=== PATIENT | male | born 1940 | race Caucasian/White ===

== ENCOUNTER 2016-10-03 15:50 | Inpatient (IN) | payer MEDICARE ==
[2016-10-03] MEDS ORDERED: Temazepam 15 MG Cap PO PRN (16:55)
[2016-10-03] MEDS ORDERED: Sodium Chloride 0.9% 10 ML Syringe FLUSH PRN (16:55)
[2016-10-03] MEDS ORDERED: cefTRIAXone 1 GM Vial IVPUSH SCH (18:00)
[2016-10-03] MEDS ORDERED: Enoxaparin 40 MG/0.4 ML Syringe SUBCUT SCH (18:00)
[2016-10-03] MEDS ORDERED: Enoxaparin 60 MG/0.6 ML Syringe SUBCUT ONE (20:00)
[2016-10-03] MEDS: Isosorbide Dinitrate 20 MG Tab PO SCH (20:36)
[2016-10-03] MEDS: Warfarin 5 MG Tab PO SCH (20:36)
[2016-10-03] MEDS: Acetaminophen/HYDROcodone 325-5 MG Tab PO PRN (20:42)
[2016-10-03] MEDS: Codeine/Promethazine 10-6.25 MG/5 ML Syrup 5 ML UD Cup PO PRN (20:47)
[2016-10-04] MEDS: Acetaminophen/HYDROcodone 325-5 MG Tab PO PRN ×2 (04:22→19:54)
[2016-10-04] MEDS: Isosorbide Dinitrate 20 MG Tab PO SCH ×3 (07:56→19:46)
[2016-10-04] MEDS: Atenolol 25 MG Tab PO SCH (07:57)
[2016-10-04] MEDS: Enoxaparin 100 MG/1 ML Syringe SUBCUT SCH ×2 (07:58→19:56)
[2016-10-04] MEDS: Furosemide 40 MG Tab PO SCH (07:58)
[2016-10-04] MEDS: Diltiazem 180 MG Cap.CD PO SCH (07:58)
[2016-10-04] MEDS: Docusate Sodium 100 MG Cap PO PRN (09:44)
[2016-10-04] MEDS: Warfarin 5 MG Tab PO SCH (12:12)
--- NOTE | 2016-10-04 15:41 | PCM.PN ---
- General Info Date of Service: 10/04/16 Admission Dx/Problem (Free Text): LLE Cellulitis LLE DVT Functional Status: Reports: pain controlled, tolerating diet, ambulating - Review of Systems General: Reports: Weakness, Fatigue. Denies: Fever HEENT: Denies: ear pain, sinus congestion, rhinitis Pulmonary: Denies: shortness of breath, cough, wheezing Cardiovascular: Reports: Edema. Denies: Chest Pain, Lightheadedness Gastrointestinal: Denies: Abdominal pain, Nausea, Vomiting Genitourinary: Reports: no symptoms Musculoskeletal: Reports: leg pain Skin: Reports: other (redness to leg) Neurological: Reports: Confusion - Patient Data Vitals - most recent: Last Vital Signs Temp 97.8 F 10/04/16 12:00 Pulse 97 10/04/16 12:00 Resp 18 10/04/16 12:00 BP 115/75 10/04/16 14:22 Pulse Ox 88 L 10/04/16 12:00 Weight - most recent: 208 lb Lab Results last 24 hrs: Laboratory Results - last 24 hr 10/03/16 10/03/16 10/03/16 Range/Units 16:30 16:30 16:30 WBC 9.6 (5.0-10.0) 10^3/uL RBC 5.48 (4.50-6.00) 10^6/uL Hgb 16.7 (14.0-18.0) g/dL Hct 51.7 (40.0-54.0) % MCV 94.3 H (82.0-94.0) fL MCH 30.5 (27.0-32.0) pg MCHC 32.3 L (33.0-38.0) g/dL RDW Coeff of Dayanara 14.5 (11.0-15.0) % Plt Count 141 L (150-400) 10^3/uL Neut % (Auto) 74.6 (35-85) % Lymph % (Auto) 12.2 (10-55) % [place] % (Auto) 11.1 (0-16) % Eos % (Auto) 1.5 (0-5) % Baso % (Auto) 0.6 (0-3) % Neut # (Auto) 7.16 H (1.80-7.00) 10^3/uL Lymph # (Auto) 1.17 (1.00-4.80) 10^3/uL [place] # (Auto) 1.07 H (0.00-0.80) 10^3/uL Eos # (Auto) 0.14 (0.00-0.45) 10^3/uL Baso # (Auto) 0.06 10^3/uL PT (9.7-12.3) SEC INR (0.92-1.18) D-Dimer, Quantitative 0.84 H (0.00-0.50) Sodium 143 (136-145) mEq/L Potassium 4.4 (3.5-5.0) mEq/L Chloride 104 (98-106) mEq/L Carbon Dioxide 35 H (21-32) mmol/L BUN 29 H (7-18) mg/dL Creatinine 1.5 H (0.7-1.3) mg/dL Est Cr Clr Drug Dosing 42.43 mL/min Estimated GFR (MDRD) 46 L (>=60) mL/min Glucose 114 H D (75-99) mg/dL Calcium 8.8 (8.4-10.1) mg/dL Troponin I 0.026 (0.00-0.06) ng/mL C-Reactive Protein 1.8 H (0.2-0.8) mg/dL 10/04/16 Range/Units 07:20 WBC (5.0-10.0) 10^3/uL RBC (4.50-6.00) 10^6/uL Hgb (14.0-18.0) g/dL Hct (40.0-54.0) % MCV (82.0-94.0) fL MCH (27.0-32.0) pg MCHC (33.0-38.0) g/dL RDW Coeff of Dayanara (11.0-15.0) % Plt Count (150-400) 10^3/uL Neut % (Auto) (35-85) % Lymph % (Auto) (10-55) % [place] % (Auto) (0-16) % Eos % (Auto) (0-5) % Baso % (Auto) (0-3) % Neut # (Auto) (1.80-7.00) 10^3/uL Lymph # (Auto) (1.00-4.80) 10^3/uL [place] # (Auto) (0.00-0.80) 10^3/uL Eos # (Auto) (0.00-0.45) 10^3/uL Baso # (Auto) 10^3/uL PT 12.7 H (9.7-12.3) SEC INR 1.17 (0.92-1.18) D-Dimer, Quantitative (0.00-0.50) Sodium (136-145) mEq/L Potassium (3.5-5.0) mEq/L Chloride (98-106) mEq/L Carbon Dioxide (21-32) mmol/L BUN (7-18) mg/dL Creatinine (0.7-1.3) mg/dL Est Cr Clr Drug Dosing mL/min Estimated GFR (MDRD) (>=60) mL/min Glucose (75-99) mg/dL Calcium (8.4-10.1) mg/dL Troponin I (0.00-0.06) ng/mL C-Reactive Protein (0.2-0.8) mg/dL Med Orders - Current: Current Medications Hydrocodone Bitart/Acetaminophen ([place] 325-5 Mg) 1 tab PO Q4H PRN PRN Reason: Pain (moderate 4-6) Last Admin: 10/04/16 04:22 Dose: 1 tab Atenolol (Tenormin) 75 mg PO DAILY [facility] Last Admin: 10/04/16 07:57 Dose: 75 mg Ceftriaxone Sodium (Rocephin) 1 gm IVPUSH Q24H [facility] Diltiazem HCl (Cardizem Cd) 180 mg PO DAILY [facility] Last Admin: 10/04/16 07:58 Dose: 180 mg Docusate Sodium (Colace) 100 mg PO BID PRN PRN Reason: Constipation Last Admin: 10/04/16 09:44 Dose: 100 mg Enoxaparin Sodium (Lovenox) 100 mg SUBCUT Q12H [facility] Last Admin: 10/04/16 07:58 Dose: 100 mg Furosemide (Lasix) 40 mg PO DAILY [facility] Last Admin: 10/04/16 07:58 Dose: 40 mg Isosorbide Dinitrate (Isordil) 10 mg PO TID [facility] Last Admin: 10/04/16 14:22 Dose: 10 mg Promethazine HCl/Codeine (Phenergan With Codeine) 5 ml PO Q6H PRN PRN Reason: Cough Last Admin: 10/03/16 20:47 Dose: 5 ml Sodium Chloride (Saline Flush) 10 ml FLUSH ASDIRECTED PRN PRN Reason: Keep Vein Open Temazepam (Restoril) 15 mg PO BEDTIME PRN PRN Reason: Sleep Warfarin Sodium (Coumadin) 5 mg PO DAILY@1200 [facility] Last Admin: 10/04/16 12:12 Dose: 5 mg Discontinued Medications Ceftriaxone Sodium (Rocephin) 1 gm IVPUSH Q24H [facility] Last Admin: 10/03/16 18:43 Dose: 1 gm Enoxaparin Sodium (Lovenox) 40 mg SUBCUT Q24H [facility] Last Admin: 10/03/16 18:44 Dose: 40 mg Enoxaparin Sodium (Lovenox) 60 mg SUBCUT ONETIME ONE Stop: 10/03/16 20:01 Last Admin: 10/03/16 20:37 Dose: 60 mg - Exam General: alert, oriented (person), cooperative HEENT: Mucous membr. moist/pink Neck: supple Lungs: Clear to auscultation, Normal respiratory effort Cardiovascular: Regular Rate, Regular Rhythm Abdomen: bowel sounds present, soft, no tenderness Extremities: edema, other (edema 2-3+ LLE; redness noted; warm. Does have venous stasis changes as well. Admits to mild tenderness) Wound/Incisions: erythema improving (per Dr. Kennedy, erythema and swelling is mildly improved from yesterday) Psy/Mental Status: alert - Problem List & Annotations (1) Cellulitis of left lower extremity SNOMED Code(s): 847272397 Code(s): L03.116 - CELLULITIS OF LEFT LOWER LIMB Status: Acute Priority: High Current Visit: Yes (2) DVT (deep venous thrombosis) SNOMED Code(s): 774472674 Code(s): I82.409 - ACUTE EMBOLISM AND THOMBOS UNSP DEEP VN UNSP LOWER EXTREMITY Status: Acute Priority: High Current Visit: Yes Qualifiers: DVT location: lower extremity Laterality: left Chronicity: acute - Problem List Review Problem List Initiated/Reviewed/Updated: Yes - My Orders Last 24 Hours: My Active Orders 10/05/16 05:11 INR,PT,PROTHROMBIN TIME [COAG] Routine - Assessment Assessment:: LLE DVT LLE Cellulitis - Plan Plan:: Patient stable. Does get confused at times, wanting to go home. Admits that leg has less pain today although does remain swollen and red. Per Dr. Kennedy, edema and redness has improved since admit. Leg ultrasound did indicate possible thrombus in posterior tibial veins. Labs noted on admit show a CRP of 1.8, WBC 9.6, Mildly elevated D-Dimer. Afebrile. Oxygen sat does drop at times. Patient history of noncompliance, not always taking his meds. Son continues to be concerned about ability to be home safely, confusion, inability to safely care for disabled daughter. services engineer has been in the home in the past, caregiver is there through the day at times to check on both patient and his daughter. Will have social service consult regarding senior living placement. Patient started on Coumadin on admit. INR 1.17. Will continue that and IV antibiotics. Follow INR. Probable discharge to senior living short term versus [facility] dependent on patient status and agreement to ongoing care as he is also the primary care provider of his disabled daughter at home.
[2016-10-04] MEDS: Codeine/Promethazine 10-6.25 MG/5 ML Syrup 5 ML UD Cup PO PRN (19:54)
[2016-10-04] MEDS ORDERED: cefTRIAXone 1 GM Vial IVPUSH SCH (20:00)
[2016-10-05] MEDS: Acetaminophen/HYDROcodone 325-5 MG Tab PO PRN ×2 (04:32→19:24)
[2016-10-05] MEDS: Atenolol 25 MG Tab PO SCH (07:49)
[2016-10-05] MEDS: Isosorbide Dinitrate 20 MG Tab PO SCH ×3 (07:49→19:20)
[2016-10-05] MEDS: Furosemide 40 MG Tab PO SCH (07:49)
[2016-10-05] MEDS: Diltiazem 180 MG Cap.CD PO SCH (07:50)
[2016-10-05] MEDS: Enoxaparin 100 MG/1 ML Syringe SUBCUT SCH ×2 (07:50→19:23)
[2016-10-05] MEDS ORDERED: Clindamycin Phosphate in D5W 300 MG in Premix Bag 1 BAG IV SCH ×2 (10:00)
--- NOTE | 2016-10-05 11:00 | PN ---
DATE: 10/05/2016 S: Marquis presented with left lower extremity DVT with edema, stasis ulceration, which was infected. Since admission, he has been afebrile. His vitals have been fine. He has been on Lovenox and started on Coumadin. INR today is still subtherapeutic at 1.29. For the most part, he has done well. He has not had any pain, still having swelling in the legs, but it is improving slightly. O: His exam confirms less edema of the lower leg below the knee. There is less calor and erythema. The drainage is essentially unchanged. ASSESSMENT: 1. LEFT LOWER EXTREMITY DEEP VENOUS THROMBOSIS. 2. STASIS ULCERATION. 3. WOUND INFECTION. P: We will switch him from Rocephin over to IV Cleocin. Continue daily INR monitoring. No other changes at this time. CONNOR/KYLAH /[id number]
[2016-10-05] MEDS: Warfarin 5 MG Tab PO SCH (12:05)
[2016-10-05] MEDS: Clindamycin Phosphate in D5W 300 MG in Premix Bag 1 BAG IV SCH ×2 (17:55)
[2016-10-06] MEDS: Clindamycin Phosphate in D5W 300 MG in Premix Bag 1 BAG IV SCH ×6 (00:31→11:35)
[2016-10-06 08:04] VITALS: BP 127/95
[2016-10-06] MEDS: Enoxaparin 100 MG/1 ML Syringe SUBCUT SCH (08:53)
[2016-10-06] MEDS: Atenolol 25 MG Tab PO SCH (08:54)
[2016-10-06] MEDS: Furosemide 40 MG Tab PO SCH (08:54)
[2016-10-06] MEDS: Diltiazem 180 MG Cap.CD PO SCH (08:54)
[2016-10-06] MEDS: Isosorbide Dinitrate 20 MG Tab PO SCH ×2 (08:54→13:16)
[2016-10-06] MEDS: Acetaminophen/HYDROcodone 325-5 MG Tab PO PRN (09:27)
[2016-10-06] MEDS: Docusate Sodium 100 MG Cap PO PRN (09:27)
[2016-10-06 10:14] LABS: BICARBONATE,ARTERIAL 29.4 mm/L (22.0-26.0); O2 DELIVERY DEVICE NASAL CANNULA; O2 FLOW RATE 3; O2 SATURATION ARTERIAL 94 % (95-98); PCO2 ARTERIAL 50 mm/Hg0 (35-45); PO2 ARTERIAL 74 mm/Hg (80-100)
[2016-10-06] MEDS ORDERED: Albuterol/Ipratropium 3.0-0.5 MG/3 ML Neb Soln NEB ONE (10:25)
[2016-10-06] MEDS: Warfarin 5 MG Tab PO SCH (11:35)
--- NOTE | 2016-10-09 07:40 | DISCH ---
ADMISSION DIAGNOSIS: Left lower extremity edema with ulceration and cellulitis. DISCHARGE DIAGNOSIS: 1. LEFT LOWER EXTREMITY DEEP VENOUS THROMBOSIS. 2. STASIS ULCERATION WITH CELLULITIS, LEFT LOWER EXTREMITY. 3. CHRONIC OBSTRUCTIVE PULMONARY DISEASE. 4. HYPERTENSION. 5. NICOTINE ADDICTION. HISTORY: The patient is a 75-year-old male very noncompliant, rarely seen in the clinic. He is treated for hypertension and has a documented history of heart disease. He is an active smoker and has never had active treatment for his COPD. He presented very unkempt with a care provider for ulcerations on his left lower leg with a lot of edema from the knee down and had some pus coming from a few of his open ulcers in the back of the calf and in and around the medial malleolus. We elected to put him in the hospital for cellulitis and wound treatment and sent him for a duplex to look for DVT, as D-dimer was only mildly elevated. HOSPITAL COURSE: Duplex shows what looks like DVT below the knee. We put him on Lovenox and started him on Coumadin. He has been on IV Cleocin and an oral Lasix tablet. For the most part, he has been quite stable; however, he is unable to care for himself at home. His INR is yet to be therapeutic and he needs ongoing cares. Until that can happen, we are electing to put him in swing bed for further cares. Right now, we will continue IV Cleocin, Lovenox 90 b.i.d., and increase his Lasix slightly. He has been having some drop in his sats and this is likely related to his COPD, which has never been treated. We will see if we can start him on some Symbicort and had DuoNeb. While he is here, we will continue to use oxygen as needed and as an outpatient try to get a formal Pulmonology consult. COMPLICATIONS: Complications during stay were none. CONSULTATIONS: RT, PT. DISPOSITION: Transfer to swing bed. TALON /[id number]
--- NOTE | 2016-10-09 07:51 | DISCH ---
ADDENDUM: Mr. Dawson also suffers from dementia. He had a prior CAF study done in 2016. He scored 63% and I believe, he is classified as [id number]. He is likely be placed in a residential in the near future. CONNOR/KYLAH /[id number]
== END 2016-10-06 12:30 | disposition swing bed (61) | DRG 300 ==
LOC: UNDOADMIN 15:50 → CC.MS 15:50
PROVIDERS: ADMIT Family Medicine; ATTEND Family Medicine
DX: I82.402 Acute embolism and thrombosis of unspecified deep veins of left lower extremity (principal); L03.116 Cellulitis of left lower limb; I83.028 Varicose veins of left lower extremity with ulcer other part of lower leg; J44.9 Chronic obstructive pulmonary disease, unspecified; I10 Essential (primary) hypertension; F17.210 Nicotine dependence, cigarettes, uncomplicated; I25.10 Atherosclerotic heart disease of native coronary artery without angina pectoris; Z91.14 Patient's other noncompliance with medication regimen; F03.90 Unspecified dementia, unspecified severity, without behavioral disturbance, psychotic disturbance, mood disturbance, and anxiety; M54.9 Dorsalgia, unspecified; G89.29 Other chronic pain; E78.00 Pure hypercholesterolemia, unspecified; I27.2 Other secondary pulmonary hypertension; N42.9 Disorder of prostate, unspecified
CPT/HCPCS: 36415; 36600; 71020; 80048; 82803; 84484; 85025; 85379; 85610; 86140; 87070; 87205; 93005; 93971-LT; 94640; 94760; A9270-GY; J0696; J1650

== ENCOUNTER 2016-10-06 13:26 | Inpatient (IN) | payer MEDICARE ==
[2016-10-06] MEDS ORDERED: Sodium Chloride 0.9% 10 ML Syringe FLUSH PRN (13:38)
[2016-10-06] MEDS ORDERED: Ondansetron 4 MG Tab.DIS PO PRN (13:38)
[2016-10-06] MEDS: Albuterol/Ipratropium 3.0-0.5 MG/3 ML Neb Soln NEB SCH ×3 (15:37→20:46)
[2016-10-06] MEDS: Furosemide 40 MG Tab PO SCH (17:09)
[2016-10-06] MEDS: Clindamycin Phosphate in D5W 300 MG in Premix Bag 1 BAG IV SCH ×2 (17:12)
[2016-10-06] MEDS: Acetaminophen/HYDROcodone 325-5 MG Tab PO PRN (17:13)
[2016-10-06] MEDS: Budesonide 0.5 MG/2 ML Neb Susp NEB SCH (20:40)
[2016-10-06] MEDS: Isosorbide Dinitrate 20 MG Tab PO SCH (20:40)
[2016-10-06] MEDS: Enoxaparin 80 MG/0.8 ML Syringe SUBCUT SCH (20:48)
[2016-10-06] MEDS: Temazepam 15 MG Cap PO PRN (21:01)
[2016-10-07] MEDS: Clindamycin Phosphate in D5W 300 MG in Premix Bag 1 BAG IV SCH ×10 (00:42→23:01)
[2016-10-07] MEDS: Acetaminophen/HYDROcodone 325-5 MG Tab PO PRN ×3 (03:53→20:17)
[2016-10-07] MEDS: Metoprolol Succinate 25 MG Tab.ER PO SCH (08:08)
[2016-10-07] MEDS: Diltiazem 180 MG Cap.CD PO SCH (08:08)
[2016-10-07] MEDS: Isosorbide Dinitrate 20 MG Tab PO SCH ×3 (08:09→20:17)
[2016-10-07] MEDS: Furosemide 40 MG Tab PO SCH ×2 (08:09→16:42)
[2016-10-07] MEDS: Enoxaparin 80 MG/0.8 ML Syringe SUBCUT SCH ×2 (08:10→20:18)
[2016-10-07] MEDS: Albuterol/Ipratropium 3.0-0.5 MG/3 ML Neb Soln NEB SCH ×3 (11:48→20:18)
[2016-10-07] MEDS: Budesonide 0.5 MG/2 ML Neb Susp NEB SCH ×2 (11:48→20:18)
[2016-10-07] MEDS: Warfarin 5 MG Tab PO SCH (11:56)
[2016-10-07] MEDS: Temazepam 15 MG Cap PO PRN (20:18)
[2016-10-08] MEDS: Clindamycin Phosphate in D5W 300 MG in Premix Bag 1 BAG IV SCH ×6 (05:52→17:39)
[2016-10-08] MEDS: Diltiazem 180 MG Cap.CD PO SCH (08:12)
[2016-10-08] MEDS: Furosemide 40 MG Tab PO SCH ×2 (08:12→16:25)
[2016-10-08] MEDS: Metoprolol Succinate 25 MG Tab.ER PO SCH (08:12)
[2016-10-08] MEDS: Enoxaparin 80 MG/0.8 ML Syringe SUBCUT SCH ×2 (08:13→20:40)
[2016-10-08] MEDS: Isosorbide Dinitrate 20 MG Tab PO SCH ×3 (08:13→20:39)
[2016-10-08] MEDS: Albuterol/Ipratropium 3.0-0.5 MG/3 ML Neb Soln NEB SCH ×3 (08:19→20:40)
[2016-10-08] MEDS: Budesonide 0.5 MG/2 ML Neb Susp NEB SCH ×2 (08:19→20:40)
[2016-10-08] MEDS: Warfarin 5 MG Tab PO SCH (12:22)
[2016-10-08] MEDS: Acetaminophen/HYDROcodone 325-5 MG Tab PO PRN (14:48)
[2016-10-08] MEDS: Temazepam 15 MG Cap PO PRN (20:40)
[2016-10-09] MEDS: Clindamycin Phosphate in D5W 300 MG in Premix Bag 1 BAG IV SCH ×4 (00:14→05:55)
[2016-10-09] MEDS: Acetaminophen/HYDROcodone 325-5 MG Tab PO PRN (03:05)
[2016-10-09 07:42] VITALS: BP 141/86
[2016-10-09 07:42] LABS: CHLORIDE,CL 104 mEq/L (98-106); SODIUM,NA 141 mEq/L (136-145)
[2016-10-09] MEDS: Enoxaparin 80 MG/0.8 ML Syringe SUBCUT SCH (07:57)
[2016-10-09] MEDS: Isosorbide Dinitrate 20 MG Tab PO SCH (07:58)
[2016-10-09] MEDS: Furosemide 40 MG Tab PO SCH (07:58)
[2016-10-09] MEDS: Diltiazem 180 MG Cap.CD PO SCH (07:59)
[2016-10-09] MEDS: Metoprolol Succinate 25 MG Tab.ER PO SCH (07:59)
[2016-10-09] MEDS: Albuterol/Ipratropium 3.0-0.5 MG/3 ML Neb Soln NEB SCH (09:40)
[2016-10-09] MEDS: Budesonide 0.5 MG/2 ML Neb Susp NEB SCH (09:40)
--- NOTE | 2016-10-10 20:02 | PCM.DCSUM1 ---
Discharge Summary - Hospital Course Free Text/Narrative:: Patient was admitted to swing bed for extended stay for IV antibiotics and to await placement to the [place]. Patient had been admitted by Dr. Kennedy for Cellulitis due to leg being swollen, red and with open lesions. D-Dimer was mildly elevated so an ultrasound was done and was concerning for a DVT below the knee. He was on IV Cleocin, Lovenox and oral Coumadin. He is a noncompliant patient, rarely seen in the clinic, does not treat his COPD. Caregiver for his daughter does assist him with taking meds at times due to forgetfulness. Was on oxygen during stay due to sats dropping below 90% with any activity. Labs relatively stable throughout acute stay. - Discharge Data Discharge Date: 10/09/16 Discharge Disposition: DC/Tfer to [facility] Condition: Fair - Patient Summary/Data Complications: none Consults: Consultations 10/06/16 13:38 Consult to Tree Tapping Laborer [CONS] Routine PT Evaluation and Treatment [CONS] Routine Hospital Course: Patient stable throughout swing bed stay. Leg did show improvement of redness and swelling. Only mild discomfort. Is ambulating without difficulty. INR therapeutic on Coumadin at 2.67. Will continue with Cleocin and Warfarin on discharge to long term. Oxygen as needed. Follow up labs done at the home. Will start Symbicort on admission to the long term. Atenolol stopped and started Metoprolol during stay and will continue at the [facility]. - Patient Instructions Diet: Regular Diet as Tolerated Activity: As Tolerated - Discharge Plan Prescriptions/Med Rec: Budesonide/Formoterol Fumarate [Symbicort 160-4.5 Mcg Inhaler] 2 puff IH BID #1 canister Clindamycin HCl [Cleocin HCl] 300 mg PO QID #40 capsule Metoprolol Succinate [Toprol XL] 50 mg PO DAILY #30 tab.er Warfarin [Coumadin] 5 mg PO DAILY@1200 #30 tablet Home Medications: Home Meds Diltiazem HCl [Dilt-Xr] 180 mg PO DAILY 02/14/16 [History] Isosorbide Dinitrate 10 mg PO TID 02/14/16 [History] Furosemide [Lasix] 40 mg PO DAILY #30 tablet 02/18/16 [Rx] Budesonide/Formoterol Fumarate [Symbicort 160-4.5 Mcg Inhaler] 2 puff IH BID #1 canister 10/09/16 [Rx] Clindamycin HCl [Cleocin HCl] 300 mg PO QID #40 capsule 10/09/16 [Rx] Metoprolol Succinate [Toprol XL] 50 mg PO DAILY #30 tab.er 10/09/16 [Rx] Warfarin [Coumadin] 5 mg PO DAILY@1200 #30 tablet 10/09/16 [Rx] - Discharge Summary/Plan Comment DC Time >30 min.: Yes Discharge Summary/Plan Comment: Transfer to [facility]. Continue Cleocin, start Symbicort. Follow INR as directed per Dr. Kennedy at the long term as started on Coumadin. Time with patient 10 minutes [place] orders and transfer form: 15 minutes Documentation 15 minutes - General Info Date of Service: 10/09/16 Admission Dx/Problem (Free Text: Cellulitis DVT Functional Status: Reports: pain controlled, tolerating diet, ambulating - Review of Systems General: Reports: Weakness, Fatigue. Denies: Fever HEENT: Reports: no symptoms Pulmonary: Reports: shortness of breath, cough, wheezing Cardiovascular: Reports: Edema. Denies: Chest Pain Gastrointestinal: Denies: Abdominal pain, Nausea, Vomiting Genitourinary: Reports: no symptoms Musculoskeletal: Reports: leg pain Skin: Reports: other (redness to leg) Neurological: Reports: Confusion - Patient Data Vitals - Most Recent: Last Vital Signs Temp 97.0 F 10/09/16 07:40 Pulse 98 10/09/16 07:59 Resp 16 10/09/16 07:40 BP 141/86 H 10/09/16 07:59 Pulse Ox 94 L 10/09/16 07:40 Weight - Most Recent: 219 lb 4.8 oz Med Orders - Current: Current Medications Discontinued Medications Hydrocodone Bitart/Acetaminophen ([place] 325-5 Mg) 1 tab PO Q4H PRN PRN Reason: Pain (moderate 4-6) Last Admin: 10/09/16 03:05 Dose: 1 tab Albuterol/Ipratropium (Duoneb 3.0-0.5 Mg/3 Ml) 3 ml NEB TIDRT [facility] Last Admin: 10/09/16 09:40 Dose: 3 ml Budesonide (Pulmicort) 0.5 mg NEB BIDRT [facility] Last Admin: 10/09/16 09:40 Dose: 0.5 mg Diltiazem HCl (Cardizem Cd) 180 mg PO DAILY [facility] Last Admin: 10/09/16 07:59 Dose: 180 mg Enoxaparin Sodium (Lovenox) 80 mg SUBCUT Q12H [facility] Last Admin: 10/09/16 07:57 Dose: 80 mg Furosemide (Lasix) 40 mg PO BIDDIURETIC [facility] Last Admin: 10/09/16 07:58 Dose: 40 mg Clindamycin Phosphate 300 mg/ (Premix) 50 mls @ 100 mls/hr IV Q6H [facility] Last Admin: 10/09/16 05:55 Dose: 100 mls/hr Isosorbide Dinitrate (Isordil) 10 mg PO TID [facility] Last Admin: 10/09/16 07:58 Dose: 10 mg Metoprolol Succinate (Toprol Xl) 50 mg PO DAILY [facility] Last Admin: 10/09/16 07:59 Dose: 50 mg Ondansetron HCl (Zofran Odt) 8 mg PO Q6H PRN PRN Reason: nausea, able to take PO Sodium Chloride (Saline Flush) 10 ml FLUSH ASDIRECTED PRN PRN Reason: Keep Vein Open Temazepam (Restoril) 15 mg PO BEDTIME PRN PRN Reason: Sleep Last Admin: 10/08/16 20:40 Dose: 15 mg Warfarin Sodium (Coumadin) 5 mg PO DAILY@1200 [facility] Last Admin: 10/08/16 12:22 Dose: 5 mg - Exam Quality Assessment: Reports: supplemental oxygen General: Reports: alert, oriented (person and place) HEENT: Reports: Mucous membr. moist/pink Neck: Reports: supple Lungs: Reports: Decreased breath sounds, Wheezing Cardiovascular: Reports: Regular Rate, Regular Rhythm Abdomen: Reports: bowel sounds present, soft, no tenderness Extremities: Reports: edema Wound/Incisions: Reports: erythema improving, other (LLE is less erythematous than on admit, swelling improved. lesions dry at this time.) Psy/Mental Status: Reports: alert *Q Meaningful Use (DIS) - VTE *Q VTE Criteria *Q: - Stroke *Q Stroke Criteria *Q: - AMI *Q AMI Criteria *Q:
== END 2016-10-09 10:20 | DRG 603 ==
LOC: UNDOADMIN 13:37 → CC.MS 13:37
PROVIDERS: ADMIT Family Medicine; ATTEND Family Medicine
DX: L03.116 Cellulitis of left lower limb (principal); Z91.14 Patient's other noncompliance with medication regimen; J44.9 Chronic obstructive pulmonary disease, unspecified; M54.9 Dorsalgia, unspecified; G89.29 Other chronic pain; I27.2 Other secondary pulmonary hypertension; N42.9 Disorder of prostate, unspecified; I10 Essential (primary) hypertension; E66.9 Obesity, unspecified; Z68.31 Body mass index [BMI] 31.0-31.9, adult
CPT/HCPCS: 36415; 80048; 85610; 94640; 97161-GP; A9270-GY; J1650

== ENCOUNTER 2017-05-28 07:03 | Inpatient (IN) | payer MEDICARE ==
[2017-05-28] MEDS ORDERED: Albuterol/Ipratropium 3.0-0.5 MG/3 ML Neb Soln ONE (07:07)
[2017-05-28] MEDS ORDERED: Albuterol/Ipratropium 3.0-0.5 MG/3 ML Neb Soln NEB PRN (07:36)
[2017-05-28] MEDS ORDERED: Albuterol/Ipratropium 3.0-0.5 MG/3 ML Neb Soln NEB ONE (07:50)
--- NOTE | 2017-05-28 07:51 | EDM.PDOC ---
ED HPI GENERAL MEDICAL PROBLEM - General Chief Complaint: Cardiovascular Problem Stated Complaint: SOB Time Seen by Provider: 05/28/17 07:27 Source of Information: Reports: Patient, Care Home Records History Limitations: Reports: Respiratory Distress - History of Present Illness INITIAL COMMENTS - FREE TEXT/NARRATIVE: Pt was brought in by [facility] from [facility] with respiratory distress. Report states that at about 0600 he started having SOB and coughing. O2 sats at that time were in the 70's and oxygen was applied. When arriving here he had a very moist cough that was congested. Duoneb was given immediately. Sats did go up to low 90's. Abdomen is distended but he feels that is his normal. NH report states that he was not like this last night. He states that he has been coughing for 2 weeks. He denies having a fever with it. Onset: Today Duration: Getting Worse Location: Reports: Chest Worsens with: Reports: Movement Associated Symptoms: Reports: Cough, cough w sputum, Shortness of Breath. Denies: Chest Pain, Fever/Chills Treatments EXECUTIVE ASST: Reports: Oxygen - Related Data Allergies Allergy/AdvReac Type Severity Reaction Status Date / Time No Known Allergies Allergy Verified 05/28/17 07:18 Home Meds: Home Meds Diltiazem HCl [Dilt-Xr] 180 mg PO DAILY 02/14/16 [History] Isosorbide Dinitrate 10 mg PO TID 02/14/16 [History] Budesonide/Formoterol Fumarate [Symbicort 160-4.5 Mcg Inhaler] 2 puff IH BID #1 canister 10/09/16 [Rx] Metoprolol Succinate [Toprol XL] 50 mg PO DAILY #30 tab.er 10/09/16 [Rx] Cetirizine HCl [Zyrtec] 10 mg PO DAILY 05/28/17 [History] Docusate Sodium [Colace] 1 cap PO DAILY 05/28/17 [History] Furosemide [Lasix] 80 mg PO BID 05/28/17 [History] Hydrocodone/Acetaminophen [[place] 5-325] 1 tab PO BID 05/28/17 [History] Melatonin 5 mg PO BEDTIME 05/28/17 [History] Potassium Chloride 20 meq PO BID 05/28/17 [History] Warfarin [Coumadin] 5 mg PO ASDIRECTED 05/28/17 [History] Past Medical History HEENT History: Reports: Allergic Rhinitis Cardiovascular History: Reports: High Cholesterol, Hypertension Genitourinary History: Reports: Prostate Disorder Musculoskeletal History: Reports: Back Pain, Chronic - Past Surgical History Musculoskeletal Surgical History: Reports: Other (See Below) Social & Family History - Family History Family Medical History: Noncontributory - Tobacco Use Smoking Status *Q: Former Smoker Years of Tobacco use: 40 Used Tobacco, but Quit: Yes Month Tobacco Last Used: 1987 - Caffeine Use Caffeine Use: Reports: None - Recreational Drug Use Recreational Drug Use: No ED ROS GENERAL - Review of Systems Review Of Systems: See Below Constitutional: Reports: Fever, Weakness. Denies: Chills HEENT: Reports: No Symptoms Respiratory: Reports: Shortness of Breath, Wheezing, Cough, Sputum Cardiovascular: Reports: Edema. Denies: Chest Pain GI/Abdominal: Denies: Abdominal Pain, Constipation, Diarrhea, Vomiting : Reports: No Symptoms Skin: Reports: No Symptoms Neurological: Reports: Confusion ED EXAM, GENERAL - Physical Exam Exam: See Below Exam Limited By: Respiratory Distress General Appearance: Alert, Anxious, Moderate Distress Ears: Normal External Exam, Normal Canal, Normal TMs Nose: Normal Inspection Throat/Mouth: Normal Inspection, Normal Oropharynx, No Airway Compromise Head: Atraumatic, Normocephalic Neck: Normal Inspection, Supple, Non-Tender Respiratory/Chest: Respiratory Distress, Rales, Rhonchi, Wheezing Cardiovascular: Regular Rate, Rhythm GI/Abdominal: Soft, Abnormal Bowel Sounds (bowel sounds are decreased bilaterally.) Back Exam: Normal Inspection, Full Range of Motion Extremities: Normal Inspection, Non-Tender, Normal Capillary Refill, Pedal Edema (2-3+) Neurological: Alert, Oriented Psychiatric: Anxious Skin Exam: Warm, Dry, Intact Course - Vital Signs Last Recorded V/S: Last Vital Signs Temp 100.7 F H 05/28/17 07:31 Pulse 95 05/28/17 07:31 Resp 20 05/28/17 07:31 BP 162/95 H 05/28/17 07:31 Pulse Ox 94 L 05/28/17 07:31 - Orders/Labs/Meds Orders: Active Orders 24 hr Category Date Time Status Patient Status Manage Transfer [TRANSFER] Routine ADT 05/28/17 08:19 Ordered EKG Documentation Completion [RC] STAT Care 05/28/17 07:22 Active RT Aerosol Therapy [RC] ASDIRECTED Care 05/28/17 07:36 Active RT Aerosol Therapy [RC] ASDIRECTED Care 05/28/17 07:51 Active Chest 1V Frontal [CR] Stat Exams 05/28/17 07:22 Taken Albuterol/Ipratropium [DuoNeb 3.0-0.5 MG/3 ML] Med 05/28/17 07:36 Active 3 ml NEB Q4H PRN Resuscitation Status Routine Resus Stat 05/28/17 08:23 Ordered Medication Orders Albuterol/Ipratropium (Duoneb 3.0-0.5 Mg/3 Ml) 3 ml NEB Q4H PRN PRN Reason: Dyspnea Last Admin: 05/28/17 07:10 Dose: 3 ml Labs: Laboratory Tests 05/28/17 05/28/17 05/28/17 Range/Units 07:30 07:30 07:30 WBC 14.5 H (5.0-10.0) 10^3/uL RBC 4.97 (4.50-6.00) 10^6/uL Hgb 15.4 (14.0-18.0) g/dL Hct 47.5 (40.0-54.0) % MCV 95.6 H (82.0-94.0) fL MCH 31.0 (27.0-32.0) pg MCHC 32.4 L (33.0-38.0) g/dL RDW Coeff of Dayanara 15.0 (11.0-15.0) % Plt Count 187 (150-400) 10^3/uL Neut % (Auto) 89.3 H (35-85) % Lymph % (Auto) 3.4 L (10-55) % [place] % (Auto) 7.0 (0-16) % Eos % (Auto) 0.1 (0-5) % Baso % (Auto) 0.2 (0-3) % Neut # (Auto) 12.97 H (1.80-7.00) 10^3/uL Lymph # (Auto) 0.49 L (1.00-4.80) 10^3/uL [place] # (Auto) 1.02 H (0.00-0.80) 10^3/uL Eos # (Auto) 0.02 (0.00-0.45) 10^3/uL Baso # (Auto) 0.03 10^3/uL PT 42.2 H (9.7-12.3) SEC INR 3.75 H (0.92-1.18) Sodium (136-145) mEq/L Potassium (3.5-5.0) mEq/L Chloride (98-106) mEq/L Carbon Dioxide (21-32) mmol/L BUN (7-18) mg/dL Creatinine (0.7-1.3) mg/dL Est Cr Clr Drug Dosing mL/min Estimated GFR (MDRD) (>=60) mL/min Glucose (75-99) mg/dL Calcium (8.4-10.1) mg/dL Total Bilirubin (0.0-1.0) mg/dL AST (15-37) U/L ALT (12-78) U/L Alkaline Phosphatase (46-116) U/L Lactate Dehydrogenase 226 H (100-190) U/L Creatine Kinase 49 (35-232) U/L Troponin I 0.031 (0.00-0.06) ng/mL C-Reactive Protein (0.2-0.8) mg/dL NT-Pro-B Natriuret Pep 3122 H (0-1000) pg/mL Total Protein (6.4-8.2) g/dL Albumin (3.4-5.0) g/dL 05/28/17 Range/Units 07:30 WBC (5.0-10.0) 10^3/uL RBC (4.50-6.00) 10^6/uL Hgb (14.0-18.0) g/dL Hct (40.0-54.0) % MCV (82.0-94.0) fL MCH (27.0-32.0) pg MCHC (33.0-38.0) g/dL RDW Coeff of Dayanara (11.0-15.0) % Plt Count (150-400) 10^3/uL Neut % (Auto) (35-85) % Lymph % (Auto) (10-55) % [place] % (Auto) (0-16) % Eos % (Auto) (0-5) % Baso % (Auto) (0-3) % Neut # (Auto) (1.80-7.00) 10^3/uL Lymph # (Auto) (1.00-4.80) 10^3/uL [place] # (Auto) (0.00-0.80) 10^3/uL Eos # (Auto) (0.00-0.45) 10^3/uL Baso # (Auto) 10^3/uL PT (9.7-12.3) SEC INR (0.92-1.18) Sodium 143 (136-145) mEq/L Potassium 3.7 (3.5-5.0) mEq/L Chloride 102 (98-106) mEq/L Carbon Dioxide 38 H (21-32) mmol/L BUN 19 H (7-18) mg/dL Creatinine 1.1 (0.7-1.3) mg/dL Est Cr Clr Drug Dosing 57.00 mL/min Estimated GFR (MDRD) > 60 (>=60) mL/min Glucose 148 H D (75-99) mg/dL Calcium 9.2 (8.4-10.1) mg/dL Total Bilirubin 1.9 H (0.0-1.0) mg/dL AST 34 (15-37) U/L ALT 41 (12-78) U/L Alkaline Phosphatase 124 H (46-116) U/L Lactate Dehydrogenase (100-190) U/L Creatine Kinase (35-232) U/L Troponin I (0.00-0.06) ng/mL C-Reactive Protein 3.2 H (0.2-0.8) mg/dL NT-Pro-B Natriuret Pep (0-1000) pg/mL Total Protein 7.2 (6.4-8.2) g/dL Albumin 3.4 (3.4-5.0) g/dL Meds: Medications Generic Name Dose Route Start Last Admin Trade Name Freq PRN Reason Stop Dose Admin Albuterol/Ipratropium 3 ml 05/28/17 07:36 05/28/17 07:10 Duoneb 3.0-0.5 Mg/3 Ml NEB 3 ml Q4H PRN Administration Dyspnea Discontinued Medications Generic Name Dose Route Start Last Admin Trade Name Freq PRN Reason Stop Dose Admin Albuterol/Ipratropium Confirm 05/28/17 07:07 Duoneb 3.0-0.5 Mg/3 Ml Administered 05/28/17 07:08 Dose 3 ml .ROUTE .STK-MED ONE Albuterol/Ipratropium 3 ml 05/28/17 07:50 Duoneb 3.0-0.5 Mg/3 Ml NEB 05/28/17 07:51 ONETIME ONE Departure - Departure Time of Disposition: 08:44 Disposition: Admitted As Inpatient 68 Condition: Serious Clinical Impression: Pneumonia, COPD exacerbation, Essential (primary) hypertension, Dementia, CHF ( congestive heart failure) Forms: ED Department Discharge - Problem List & Annotations (1) Pneumonia SNOMED Code(s): 845269887 Code(s): J18.9 - PNEUMONIA, UNSPECIFIED ORGANISM Status: Acute Priority: High Current Visit: No Qualifiers: Pneumonia type: due to unspecified organism Laterality: bilateral Lung location: lower lobe of lung Qualified Code(s): J18.9 - Pneumonia, unspecified organism (2) COPD exacerbation SNOMED Code(s): 538052642133567 Code(s): J44.1 - CHRONIC OBSTRUCTIVE PULMONARY DISEASE W (ACUTE) EXACERBATION Status: Acute Priority: Medium Current Visit: Yes (3) CHF (congestive heart failure) SNOMED Code(s): 12904790 Code(s): I50.9 - HEART FAILURE, UNSPECIFIED Status: Acute Priority: Medium Current Visit: Yes Qualifiers: Congestive heart failure type: combined (4) Dementia SNOMED Code(s): 13066392 Code(s): F03.90 - UNSPECIFIED DEMENTIA WITHOUT BEHAVIORAL DISTURBANCE Status: Acute Priority: Low Current Visit: Yes Qualifiers: Dementia type: Alzheimer's disease Alzheimer's disease onset: early-onset Dementia behavioral disturbance: without behavioral disturbance Qualified Code(s): G30.0 - Alzheimer's disease with early onset; F02.80 - Dementia in other diseases classified elsewhere without behavioral disturbance; F02.80 - Dementia in other diseases classified elsewhere without behavioral disturbance; F02.80 - Dementia in other diseases classified elsewhere without behavioral disturbance (5) Essential (primary) hypertension SNOMED Code(s): 56565935 Code(s): I10 - ESSENTIAL (PRIMARY) HYPERTENSION Status: Acute Priority: Low Current Visit: Yes - Problem List Review Problem List Initiated/Reviewed/Updated: Yes - My Orders Last 24 Hours: My Active Orders 05/28/17 07:22 EKG Documentation Completion [RC] STAT Chest 1V Frontal [CR] Stat 05/28/17 07:36 RT Aerosol Therapy [RC] ASDIRECTED Albuterol/Ipratropium [DuoNeb 3.0-0.5 MG/3 ML] 3 ml NEB Q4H PRN 05/28/17 07:51 RT Aerosol Therapy [RC] ASDIRECTED 05/28/17 08:19 Patient Status Manage Transfer [TRANSFER] Routine 05/28/17 08:23 Resuscitation Status Routine - Assessment/Plan Admission H&P: Please use this note as an admission H&P Last 24 Hours: My Active Orders 05/28/17 07:22 EKG Documentation Completion [RC] STAT Chest 1V Frontal [CR] Stat 05/28/17 07:36 RT Aerosol Therapy [RC] ASDIRECTED Albuterol/Ipratropium [DuoNeb 3.0-0.5 MG/3 ML] 3 ml NEB Q4H PRN 05/28/17 07:51 RT Aerosol Therapy [RC] ASDIRECTED 05/28/17 08:19 Patient Status Manage Transfer [TRANSFER] Routine 05/28/17 08:23 Resuscitation Status Routine Plan: Will admit with palliative care as pt is in serious condition.
[2017-05-28 07:56] LABS: CHLORIDE,CL 102 mEq/L (98-106); SODIUM,NA 143 mEq/L (136-145)
[2017-05-28] MEDS ORDERED: methylPREDNISolone Sodium Succinate 125 MG/2 ML SDV IVPUSH SCH (09:00)
[2017-05-28] MEDS ORDERED: cefTRIAXone 1 GM Vial IVPUSH SCH (09:00)
[2017-05-28] MEDS ORDERED: Azithromycin 500 MG in Sodium Chloride 0.9% 250 ML IV SCH (09:00)
[2017-05-28] MEDS ORDERED: Acetaminophen 325 MG Tab PO PRN (09:18)
[2017-05-28] MEDS ORDERED: Sodium Chloride 0.9% 10 ML Syringe FLUSH PRN (09:18)
[2017-05-28] MEDS: Metoprolol Succinate 25 MG Tab.ER PO SCH (09:57)
[2017-05-28] MEDS: Diltiazem 180 MG Cap.CD PO SCH (09:57)
[2017-05-28] MEDS: Docusate Sodium 100 MG Cap PO SCH (09:57)
[2017-05-28] MEDS: Acetaminophen/HYDROcodone 325-5 MG Tab PO SCH ×2 (09:58→19:45)
[2017-05-28] MEDS: Loratadine 10 MG Tab PO SCH (09:58)
[2017-05-28] MEDS: Formoterol/Mometasone 200-5 MCG 8.8 GM Inhaler IH SCH ×2 (09:58→19:49)
[2017-05-28] MEDS: Furosemide 40 MG Tab PO SCH ×2 (09:58→16:54)
[2017-05-28] MEDS: Albuterol/Ipratropium 3.0-0.5 MG/3 ML Neb Soln NEB SCH ×3 (11:37→19:45)
[2017-05-28] MEDS: Potassium Chloride 10 MEQ Tab.ER PO SCH ×2 (11:37→16:54)
[2017-05-28] MEDS: Isosorbide Dinitrate 20 MG Tab PO SCH ×2 (14:26→19:47)
[2017-05-28] MEDS ORDERED: Non-Formulary Medication 1 Each (Melatonin [Melatonin] 5 MG) PO SCH (20:00)
[2017-05-28] MEDS ORDERED: Zolpidem 5 MG Tab PO ONE (22:54)
[2017-05-29 07:19] LABS: CHLORIDE,CL 102 mEq/L (98-106); SODIUM,NA 142 mEq/L (136-145)
[2017-05-29] MEDS: Albuterol/Ipratropium 3.0-0.5 MG/3 ML Neb Soln NEB SCH ×4 (07:56→20:12)
[2017-05-29] MEDS: Isosorbide Dinitrate 20 MG Tab PO SCH ×3 (07:58→20:13)
[2017-05-29] MEDS: Furosemide 40 MG Tab PO SCH (07:58)
[2017-05-29] MEDS: Acetaminophen/HYDROcodone 325-5 MG Tab PO SCH ×2 (07:58→20:12)
[2017-05-29] MEDS: Metoprolol Succinate 25 MG Tab.ER PO SCH (07:59)
[2017-05-29] MEDS: Diltiazem 180 MG Cap.CD PO SCH (07:59)
[2017-05-29] MEDS: Docusate Sodium 100 MG Cap PO SCH (08:00)
[2017-05-29] MEDS: Loratadine 10 MG Tab PO SCH (08:00)
[2017-05-29] MEDS: Potassium Chloride 10 MEQ Tab.ER PO SCH ×2 (08:01→17:44)
[2017-05-29] MEDS: Formoterol/Mometasone 200-5 MCG 8.8 GM Inhaler IH SCH ×2 (08:02→20:12)
[2017-05-29] MEDS: cefTRIAXone 1 GM Vial IVPUSH SCH (08:31)
[2017-05-29] MEDS: methylPREDNISolone Sodium Succinate 125 MG/2 ML SDV IVPUSH SCH (08:32)
[2017-05-29] MEDS: Azithromycin 500 MG in Sodium Chloride 0.9% 250 ML IV SCH (08:32)
--- NOTE | 2017-05-29 09:59 | PCM.PN ---
- General Info Date of Service: 05/29/17 Admission Dx/Problem (Free Text): Pneumonia COPD Exacerbation CHF HTN Dementia Subjective Update: Patient reports he is feeling better this morning and is able to breath easier. His vital signs are stable. His O2 saturations are mid 90's on 4 L O2 via nasal canula. He denies any shortness of breath at rest. He does report he has been up moving in the room and does have some shortness of breath with that. He has been afebrile throughout the night. He does complain of nonproductive cough. Has been unable to give sputum sample. He also has 2+ pitting edema to BLE. He reports he always has this swelling. Is currently on 80 mg lasix PO BID. He does report he has felt fatigued and weak the past couple days. He denies any other issues at time of rounds. Functional Status: Reports: Pain Controlled, Tolerating Diet, Ambulating, Urinating. Denies: New Symptoms - Review of Systems General: Reports: Weakness, Fatigue. Denies: Fever HEENT: Denies: Dysphasia, Ear Pain, Sinus Congestion, Sore Throat, Rhinitis Pulmonary: Reports: Shortness of Breath, Cough, Wheezing. Denies: Sputum, Hemoptysis Cardiovascular: Reports: Dyspnea on Exertion, Edema. Denies: Chest Pain, Palpitations, Lightheadedness Gastrointestinal: Reports: No Symptoms. Denies: Abdominal Pain, Decreased Appetite, Diarrhea, Nausea, Vomiting Genitourinary: Reports: Other (weak stream). Denies: Dysuria, Frequency Musculoskeletal: Reports: No Symptoms Skin: Reports: No Symptoms. Denies: Cyanosis, Diaphoresis Neurological: Reports: No Symptoms Psychiatric: Reports: No Symptoms - Patient Data Vitals - Most Recent: Last Vital Signs Temp 98.1 F 05/29/17 07:50 Pulse 94 05/29/17 07:59 Resp 20 05/29/17 07:50 BP 115/78 05/29/17 07:59 Pulse Ox 92 L 05/29/17 07:50 Weight - Most Recent: 224 lb 12.8 oz I&O - Last 24 Hours: Intake & Output 05/28/17 05/29/17 05/29/17 22:59 06:59 14:59 Intake Total 1445 1400 Output Total 700 1300 Balance 745 100 Lab Results Last 24 Hours: Laboratory Results - last 24 hr 05/28/17 05/29/17 05/29/17 Range/Units 14:22 06:45 06:45 WBC 13.1 H (5.0-10.0) 10^3/uL RBC 4.67 (4.50-6.00) 10^6/uL Hgb 14.0 (14.0-18.0) g/dL Hct 44.9 (40.0-54.0) % MCV 96.1 H (82.0-94.0) fL MCH 30.0 (27.0-32.0) pg MCHC 31.2 L (33.0-38.0) g/dL RDW Coeff of Dayanara 14.6 (11.0-15.0) % Plt Count 127 L (150-400) 10^3/uL Neut % (Auto) 88.0 H (35-85) % Lymph % (Auto) 4.4 L (10-55) % [place] % (Auto) 7.5 (0-16) % Eos % (Auto) 0 (0-5) % Baso % (Auto) 0.1 (0-3) % Neut # (Auto) 11.52 H (1.80-7.00) 10^3/uL Lymph # (Auto) 0.57 L (1.00-4.80) 10^3/uL [place] # (Auto) 0.98 H (0.00-0.80) 10^3/uL Eos # (Auto) 0.00 (0.00-0.45) 10^3/uL Baso # (Auto) 0.01 10^3/uL PT 48.9 H (9.7-12.3) SEC INR 4.33 H* (0.92-1.18) Sodium (136-145) mEq/L Potassium (3.5-5.0) mEq/L Chloride (98-106) mEq/L Carbon Dioxide (21-32) mmol/L BUN (7-18) mg/dL Creatinine (0.7-1.3) mg/dL Est Cr Clr Drug Dosing mL/min Estimated GFR (MDRD) (>=60) mL/min Glucose (75-99) mg/dL Calcium (8.4-10.1) mg/dL C-Reactive Protein (0.2-0.8) mg/dL Urine Color Dark yellow (YELLOW) Urine Appearance Clear (CLEAR) Urine pH 5.0 (4.5-8.0) Ur Specific [place] 1.020 (1.003-1.020) Urine Protein Negative (NEGATIVE) mg/dL Urine Glucose (UA) Negative (NEGATIVE) mg/dL Urine Ketones Negative (NEGATIVE) mg/dL Urine Occult Blood Trace-intact H (NEGATIVE) Urine Nitrite Negative (NEGATIVE) Urine Bilirubin Negative (NEGATIVE) Urine Urobilinogen 0.2 (0.2-1.0) EU/dL Ur Leukocyte Esterase Negative (NEGATIVE) Urine RBC 0-5 (0-5) /HPF Urine WBC Not seen (0-5) /HPF Ur Squamous Epith Cells Few H (NOT SEEN) /HPF 05/29/17 Range/Units 06:45 WBC (5.0-10.0) 10^3/uL RBC (4.50-6.00) 10^6/uL Hgb (14.0-18.0) g/dL Hct (40.0-54.0) % MCV (82.0-94.0) fL MCH (27.0-32.0) pg MCHC (33.0-38.0) g/dL RDW Coeff of Dayanara (11.0-15.0) % Plt Count (150-400) 10^3/uL Neut % (Auto) (35-85) % Lymph % (Auto) (10-55) % [place] % (Auto) (0-16) % Eos % (Auto) (0-5) % Baso % (Auto) (0-3) % Neut # (Auto) (1.80-7.00) 10^3/uL Lymph # (Auto) (1.00-4.80) 10^3/uL [place] # (Auto) (0.00-0.80) 10^3/uL Eos # (Auto) (0.00-0.45) 10^3/uL Baso # (Auto) 10^3/uL PT (9.7-12.3) SEC INR (0.92-1.18) Sodium 142 (136-145) mEq/L Potassium 3.7 (3.5-5.0) mEq/L Chloride 102 (98-106) mEq/L Carbon Dioxide 37 H (21-32) mmol/L BUN 20 H (7-18) mg/dL Creatinine 1.1 (0.7-1.3) mg/dL Est Cr Clr Drug Dosing 57.00 mL/min Estimated GFR (MDRD) > 60 (>=60) mL/min Glucose 149 H (75-99) mg/dL Calcium 9.0 (8.4-10.1) mg/dL C-Reactive Protein 16.8 H (0.2-0.8) mg/dL Urine Color (YELLOW) Urine Appearance (CLEAR) Urine pH (4.5-8.0) Ur Specific [place] (1.003-1.020) Urine Protein (NEGATIVE) mg/dL Urine Glucose (UA) (NEGATIVE) mg/dL Urine Ketones (NEGATIVE) mg/dL Urine Occult Blood (NEGATIVE) Urine Nitrite (NEGATIVE) Urine Bilirubin (NEGATIVE) Urine Urobilinogen (0.2-1.0) EU/dL Ur Leukocyte Esterase (NEGATIVE) Urine RBC (0-5) /HPF Urine WBC (0-5) /HPF Ur Squamous Epith Cells (NOT SEEN) /HPF Antione Results Last 24 Hours: Microbiology 05/28/17 14:55 Influenza Type A Antigen Screen - Final Nasopharyngeal Swab - Nare, Unspecified NEGATIVE INFLUENZA A VIRUS AG Influenza Type B Antigen Screen - Final NEGATIVE INFLUENZA B VIRUS AG Med Orders - Current: Current Medications Acetaminophen (Tylenol) 650 mg PO Q4H PRN PRN Reason: Pain (Mild 1-3)/fever Last Admin: 05/28/17 11:37 Dose: 650 mg Hydrocodone Bitart/Acetaminophen ([place] 325-5 Mg) 1 tab PO BID [facility] Last Admin: 05/29/17 07:58 Dose: 1 tab Albuterol/Ipratropium (Duoneb 3.0-0.5 Mg/3 Ml) 3 ml NEB Q4H PRN PRN Reason: Dyspnea Last Admin: 05/28/17 07:10 Dose: 3 ml Albuterol/Ipratropium (Duoneb 3.0-0.5 Mg/3 Ml) 3 ml NEB QIDRT [facility] Last Admin: 05/29/17 07:56 Dose: 3 ml Ceftriaxone Sodium (Rocephin) 1 gm IVPUSH Q24H [facility] Last Admin: 05/29/17 08:31 Dose: 1 gm Diltiazem HCl (Cardizem Cd) 180 mg PO DAILY [facility] Last Admin: 05/29/17 07:59 Dose: 180 mg Docusate Sodium (Colace) 100 mg PO DAILY [facility] Last Admin: 05/29/17 08:00 Dose: 100 mg Furosemide (Lasix) 80 mg PO BIDDIURETIC [facility] Azithromycin 500 mg/ Sodium (Chloride) 250 mls @ 250 mls/hr IV Q24H [facility] Last Admin: 05/29/17 08:32 Dose: 250 mls/hr Isosorbide Dinitrate (Isordil) 10 mg PO TID [facility] Last Admin: 05/29/17 07:58 Dose: 10 mg Loratadine (Claritin) 10 mg PO DAILY [facility] Last Admin: 05/29/17 08:00 Dose: 10 mg Methylprednisolone Sodium Succinate (Solu-Medrol) 62.5 mg IVPUSH Q24H [facility] Last Admin: 05/29/17 08:32 Dose: 62.5 mg Metoprolol Succinate (Toprol Xl) 50 mg PO DAILY [facility] Last Admin: 05/29/17 07:59 Dose: 50 mg Mometasone Furoate/Formoterol Fumar (Dulera 200-5 Mcg) 0 puff IH BID [facility] Last Admin: 05/29/17 08:02 Dose: 2 inh Potassium Chloride (Klor-Con 10) 20 meq PO BIDMEALS [facility] Last Admin: 05/29/17 08:01 Dose: 20 meq Sodium Chloride (Saline Flush) 10 ml FLUSH ASDIRECTED PRN PRN Reason: Keep Vein Open Discontinued Medications Albuterol/Ipratropium (Duoneb 3.0-0.5 Mg/3 Ml) Confirm Administered Dose 3 ml .ROUTE .STK-MED ONE Stop: 05/28/17 07:08 Last Admin: 05/28/17 09:42 Dose: Not Given Albuterol/Ipratropium (Duoneb 3.0-0.5 Mg/3 Ml) 3 ml NEB ONETIME ONE Stop: 05/28/17 07:51 Last Admin: 05/28/17 07:45 Dose: 3 ml Ceftriaxone Sodium (Rocephin) 1 gm IVPUSH Q24H [facility] Last Admin: 05/28/17 09:55 Dose: 1 gm Furosemide (Lasix) 80 mg PO BIDDIURETIC [facility] Last Admin: 05/29/17 07:58 Dose: 80 mg Azithromycin 500 mg/ Sodium (Chloride) 250 mls @ 250 mls/hr IV Q24H [facility] Last Admin: 05/28/17 10:00 Dose: 250 mls/hr Methylprednisolone Sodium Succinate (Solu-Medrol) 62.5 mg IVPUSH Q24H [facility] Last Admin: 05/28/17 09:56 Dose: 62.5 mg Non-Formulary Medication (Melatonin [Melatonin]) 5 mg PO BEDTIME [facility] Zolpidem Tartrate (Ambien) 10 mg PO ONETIME ONE Stop: 05/28/17 22:55 Last Admin: 05/28/17 23:28 Dose: 10 mg - Exam Quality Assessment: Supplemental Oxygen, DVT Prophylaxis General: Alert, Oriented, No Acute Distress HEENT: Pupils Equal, Pupils Reactive, EOMI, Mucous Membr. Moist/Bear Neck: Supple, Trachea Midline Lungs: Rales, Rhonchi, Wheezing Cardiovascular: Regular Rate, Regular Rhythm GI/Abdominal Exam: Normal Bowel Sounds, Soft, Non-Tender, Distended Back Exam: Normal Inspection, Full Range of Motion. No: CVA Tenderness (L), CVA Tenderness (R) Extremities: Pedal Edema (2+ pitting) Skin: Warm, Dry, Intact Neurological: No New Focal Deficit Psy/Mental Status: Alert, Normal Affect, Normal Mood - Problem List & Annotations (1) CHF (congestive heart failure) SNOMED Code(s): 48174776 Code(s): I50.9 - HEART FAILURE, UNSPECIFIED Status: Chronic Priority: Medium Current Visit: Yes Qualifiers: Congestive heart failure type: combined Congestive heart failure chronicity : acute on chronic Qualified Code(s): I50.43 - Acute on chronic combined systolic (congestive) and diastolic (congestive) heart failure (2) COPD exacerbation SNOMED Code(s): 049302757912821 Code(s): J44.1 - CHRONIC OBSTRUCTIVE PULMONARY DISEASE W (ACUTE) EXACERBATION Status: Acute Priority: Medium Current Visit: Yes (3) Dementia SNOMED Code(s): 11496322 Code(s): F03.90 - UNSPECIFIED DEMENTIA WITHOUT BEHAVIORAL DISTURBANCE Status: Chronic Priority: Low Current Visit: Yes Qualifiers: Dementia type: Alzheimer's disease Alzheimer's disease onset: early-onset Dementia behavioral disturbance: without behavioral disturbance Qualified Code(s): G30.0 - Alzheimer's disease with early onset; F02.80 - Dementia in other diseases classified elsewhere without behavioral disturbance; F02.80 - Dementia in other diseases classified elsewhere without behavioral disturbance; F02.80 - Dementia in other diseases classified elsewhere without behavioral disturbance (4) Essential (primary) hypertension SNOMED Code(s): 57414207 Code(s): I10 - ESSENTIAL (PRIMARY) HYPERTENSION Status: Chronic Priority : Low Current Visit: Yes (5) Pneumonia SNOMED Code(s): 879619050 Code(s): J18.9 - PNEUMONIA, UNSPECIFIED ORGANISM Status: Acute Priority: High Current Visit: Yes Qualifiers: Pneumonia type: due to unspecified organism Laterality: bilateral Lung location: lower lobe of lung Qualified Code(s): J18.9 - Pneumonia, unspecified organism - Problem List Review Problem List Initiated/Reviewed/Updated: Yes - Plan Plan:: WBC did improve some. Continue IV antibiotics, Duonebs, and steroids Wean O2 as able Continue lasix 80 mg BID. Monitor I & O. Daily weight. Hold Coumadin. INR supratherapeutic. PT to evaluate and treat for strengthening
[2017-05-29] MEDS: Furosemide 80 MG Tab PO SCH (16:13)
[2017-05-29] MEDS: Temazepam 15 MG Cap PO PRN (22:03)
[2017-05-30] MEDS: Furosemide 80 MG Tab PO SCH ×2 (07:20→15:51)
[2017-05-30] MEDS: Potassium Chloride 10 MEQ Tab.ER PO SCH ×2 (07:20→17:08)
[2017-05-30] MEDS: Metoprolol Succinate 25 MG Tab.ER PO SCH (07:21)
[2017-05-30] MEDS: Docusate Sodium 100 MG Cap PO SCH (07:21)
[2017-05-30] MEDS: Acetaminophen/HYDROcodone 325-5 MG Tab PO SCH ×2 (07:21→19:25)
[2017-05-30] MEDS: Isosorbide Dinitrate 20 MG Tab PO SCH ×3 (07:22→19:25)
[2017-05-30] MEDS: Loratadine 10 MG Tab PO SCH (07:22)
[2017-05-30] MEDS: Diltiazem 180 MG Cap.CD PO SCH (07:23)
[2017-05-30] MEDS: methylPREDNISolone Sodium Succinate 125 MG/2 ML SDV IVPUSH SCH (07:23)
[2017-05-30] MEDS: cefTRIAXone 1 GM Vial IVPUSH SCH (07:23)
[2017-05-30] MEDS: Albuterol/Ipratropium 3.0-0.5 MG/3 ML Neb Soln NEB SCH ×4 (07:24→19:27)
[2017-05-30] MEDS: Formoterol/Mometasone 200-5 MCG 8.8 GM Inhaler IH SCH ×2 (07:24→19:28)
[2017-05-30] MEDS: Azithromycin 500 MG in Sodium Chloride 0.9% 250 ML IV SCH (07:34)
[2017-05-30 08:33] LABS: CHLORIDE,CL 98 mEq/L (98-106); SODIUM,NA 140 mEq/L (136-145)
--- NOTE | 2017-05-30 11:08 | PN ---
DATE: 05/30/2017 S: Marquis is a 76-year-old male who was initially brought in by ambulance to the ER on the with respiratory distress. He was admitted to the hospital. At that point in time, O2 saturations were in the 70s. He had presented with a very moist cough, just lot of congestion, with pneumonia, bilateral lower lobe. He was admitted with palliative care at that point in time. Yesterday, he had been feeling better, just was able to breathe easier. His vital signs are stable. He had been on 4 L and he was in the mid 90s on his oxygen saturation. They had noted that he did get short of breath with exertion, however. He was unable to give a sputum sample. However, he did give a sputum sample this morning. He was noted to have bilateral pitting edema as well. He states that he has always had swelling, however, it has been worse on the left than the right. He is currently on 80 mg Lasix b.i.d. He does state that, otherwise, he has not had any setbacks. O: VITAL SIGNS: O2 saturation is 93% on 4 L. It was 98% on 4 L earlier this morning. Respiratory rate is 22, temp 97.5 presently, pulse of 96 with a blood pressure of 118/82. GENERAL: Pleasant gentleman who is sitting up in his bed. He does have obvious wet cough. He has had a normal conversation. He really does not appear to be in any other distress. He does not appear to be having any difficulty with air movement. HEENT: Grossly unremarkable. LUNGS: Quite diminished throughout. There are some rales and rhonchi noted bilaterally. CARDIOVASCULAR: Regular rate and rhythm. No murmurs are noted. ABDOMEN: Soft. Bowel sounds are present, normoactive. No organomegaly. Nontender with palpation. EXTREMITIES: He does have 2+ edema on the left, 1+ on the right. SKIN: Uniformly pink, warm, and dry. He does have some increased erythema noted to the left lower extremity. However it is cool to touch. LABORATORY WORK: White blood count is 13,700. It was 13,100 yesterday with 14,500 on admission. INR was 4.33. His Coumadin was held. Currently it is 3.34 today. CRP is at 9.7, down from 16.8 yesterday. ASSESSMENT: 1. BILATERAL LOWER LOBE PNEUMONIA. 2. CHRONIC OBSTRUCTIVE PULMONARY DISEASE EXACERBATION. 3. DEMENTIA. 4. CONGESTIVE HEART FAILURE. P: Again laboratory work is stable. We will continue IV antibiotics, DuoNeb's, and steroids. We will continue to try to wean his O2 as able. Again, I will put him on acapella to see if we cannot help with his cough. I will discuss his Lasix use with Dr. Kennedy today. We will get an ultrasound of the left lower extremity. INR again is still elevated. We will hold and re-evaluate tomorrow. JAISON/KYLAH /[id number]
[2017-05-30] MEDS ORDERED: Codeine/Promethazine 10-6.25 MG/5 ML Syrup 5 ML UD Cup PO PRN (22:07)
[2017-05-30] MEDS: Temazepam 15 MG Cap PO PRN (22:35)
[2017-05-31 07:33] LABS: CHLORIDE,CL 100 mEq/L (98-106); SODIUM,NA 140 mEq/L (136-145)
[2017-05-31] MEDS: cefTRIAXone 1 GM Vial IVPUSH SCH (07:44)
[2017-05-31] MEDS: Potassium Chloride 10 MEQ Tab.ER PO SCH ×2 (07:44→17:56)
[2017-05-31] MEDS: methylPREDNISolone Sodium Succinate 125 MG/2 ML SDV IVPUSH SCH (07:44)
[2017-05-31] MEDS: Diltiazem 180 MG Cap.CD PO SCH (07:45)
[2017-05-31] MEDS: Loratadine 10 MG Tab PO SCH (07:45)
[2017-05-31] MEDS: Isosorbide Dinitrate 20 MG Tab PO SCH ×3 (07:45→20:05)
[2017-05-31] MEDS: Metoprolol Succinate 25 MG Tab.ER PO SCH (07:45)
[2017-05-31] MEDS: Furosemide 80 MG Tab PO SCH (07:46)
[2017-05-31] MEDS: Docusate Sodium 100 MG Cap PO SCH (07:46)
[2017-05-31] MEDS: Acetaminophen/HYDROcodone 325-5 MG Tab PO SCH ×2 (07:46→20:04)
[2017-05-31] MEDS: Formoterol/Mometasone 200-5 MCG 8.8 GM Inhaler IH SCH ×2 (07:47→20:03)
[2017-05-31] MEDS: Azithromycin 500 MG in Sodium Chloride 0.9% 250 ML IV SCH (07:47)
[2017-05-31] MEDS: Albuterol/Ipratropium 3.0-0.5 MG/3 ML Neb Soln NEB SCH ×4 (07:48→20:03)
[2017-05-31] MEDS ORDERED: Furosemide 40 MG/4 ML VIAL IVPUSH SCH (14:45)
[2017-05-31] MEDS: Warfarin 5 MG Tab PO SCH (15:35)
[2017-06-01 07:11] VITALS: BP 108/85
[2017-06-01] MEDS: cefTRIAXone 1 GM Vial IVPUSH SCH (07:27)
[2017-06-01] MEDS: Formoterol/Mometasone 200-5 MCG 8.8 GM Inhaler IH SCH (07:27)
[2017-06-01] MEDS: methylPREDNISolone Sodium Succinate 125 MG/2 ML SDV IVPUSH SCH (07:27)
[2017-06-01] MEDS: Albuterol/Ipratropium 3.0-0.5 MG/3 ML Neb Soln NEB SCH ×2 (07:28→12:01)
[2017-06-01] MEDS: Diltiazem 180 MG Cap.CD PO SCH (07:28)
[2017-06-01] MEDS: Docusate Sodium 100 MG Cap PO SCH (07:28)
[2017-06-01] MEDS: Isosorbide Dinitrate 20 MG Tab PO SCH (07:28)
[2017-06-01] MEDS: Metoprolol Succinate 25 MG Tab.ER PO SCH (07:28)
[2017-06-01] MEDS: Potassium Chloride 10 MEQ Tab.ER PO SCH (07:28)
[2017-06-01] MEDS: Loratadine 10 MG Tab PO SCH (07:28)
[2017-06-01] MEDS: Acetaminophen/HYDROcodone 325-5 MG Tab PO SCH (07:28)
[2017-06-01 07:50] LABS: CHLORIDE,CL 104 mEq/L (98-106); SODIUM,NA 144 mEq/L (136-145)
[2017-06-01] MEDS ORDERED: Furosemide 40 MG/4 ML VIAL IVPUSH SCH (08:00)
[2017-06-01] MEDS: Azithromycin 500 MG in Sodium Chloride 0.9% 250 ML IV SCH (08:20)
--- NOTE | 2017-06-01 11:44 | PN ---
DATE: 05/31/2017 S: Marquis is doing better. He has not spiked any temps and for the most part denies any complaints. Says his breathing feels a little better. He is still saturating above 90 on 4 L. His lab work looks reassuring as his CRP is trending down. I believe he is at 4.7, reached a max of 17. Has not had any hypotension. O: GENERAL: He is pleasant and cooperative. Slightly confused. HEENT: Grossly benign. NECK: His neck veins are flat. RESPIRATORY: His lung sounds are diminished throughout, but I do not hear any rales, rhonchi, or wheeze currently. May be some slight rales in the right base. CARDIAC: Tones are irregular and controlled. ABDOMEN: Soft. Does have 2+ edema of his lower extremities which is chronic. ASSESSMENT: 1. BIBASILAR PNEUMONIA. 2. SLIGHT EXACERBATION OF CONGESTIVE HEART FAILURE, LIKELY STEROID INDUCED. P: We are going to give him some IV Lasix today instead of his oral. We will continue to monitor closely. Otherwise no changes. CONNOR/KYLAH /[id number]
[2017-06-01] MEDS: Warfarin 5 MG Tab PO SCH (12:01)
--- NOTE | 2017-06-01 15:48 | DISCH ---
ADMISSION DIAGNOSES: 1. Bibasilar pneumonia. 2. History of congestive heart failure. 3. History of deep vein thrombosis. 4. Chronic obstructive pulmonary disease. DISCHARGE DIAGNOSIS: 1. BIBASILAR PNEUMONIA. 2. HISTORY OF CONGESTIVE HEART FAILURE. 3. HISTORY OF DEEP VEIN THROMBOSIS. 4. CHRONIC OBSTRUCTIVE PULMONARY DISEASE. HISTORY: The patient is a 76-year-old, very fragile, elderly male with some dementia, who resides at the [facility]. He has a history of COPD, pulmonary hypertension, and a recent DVT. He presented with worsening shortness of breath and cough. X-ray confirmed pneumonia with an elevated white count and CRP. Tara Lowry admitted him for such. HOSPITAL COURSE: The patient was admitted, started on appropriate pulmonary cares, Rocephin and Zithromax and treated appropriately. Over the last four days, he has done well. His CRP initially kyung up to 17 and has trended down steadily since then. He has required no increase in supplemental O2. He is chronically on 2 L. He has had no cardiopulmonary instability and for the most part, he has done well. Lab work today shows his white count down to 11 from 15. His renal function has remained stable. His CRP is down to 2.9. He has an elevated BNP, probably related somewhat to the steroids we have been giving him, got in him little bit of extra fluid retention. At this time, he looks clinically well. I will put him on a finished course of Ceftin through the home. Continue his routine pulmonary cares and we will follow him clinically through the residential. He will be discharged back to [facility] on his prior medications without change. COMPLICATIONS: During the stay were none. CONSULTATIONS: None. DISPOSITION: Discharged to [facility]. CONNOR/KYLAH /[id number]
== END 2017-06-01 12:45 | disposition home or self-care (01) | DRG 190 ==
LOC: CC.ED 07:03 → CC.MS 08:19 → UNDOADMIN 08:44 → CC.MS 08:44 → UNDOADMIN 09:18 → UNDODISIN 06-01 12:45
PROVIDERS: ADMIT Physician Assistant Medical; ATTEND Family Medicine
DX: J44.0 Chronic obstructive pulmonary disease with (acute) lower respiratory infection (principal); J18.9 Pneumonia, unspecified organism; I50.40 Unspecified combined systolic (congestive) and diastolic (congestive) heart failure; J44.1 Chronic obstructive pulmonary disease with (acute) exacerbation; Z87.891 Personal history of nicotine dependence; F03.90 Unspecified dementia, unspecified severity, without behavioral disturbance, psychotic disturbance, mood disturbance, and anxiety; G30.0 Alzheimer's disease with early onset; J30.9 Allergic rhinitis, unspecified; G89.29 Other chronic pain; M54.9 Dorsalgia, unspecified; N42.9 Disorder of prostate, unspecified; E78.00 Pure hypercholesterolemia, unspecified; I11.0 Hypertensive heart disease with heart failure; G30.9 Alzheimer's disease, unspecified; F02.80 Dementia in other diseases classified elsewhere, unspecified severity, without behavioral disturbance, psychotic disturbance, mood disturbance, and anxiety; Z86.718 Personal history of other venous thrombosis and embolism; Z79.01 Long term (current) use of anticoagulants; Z79.899 Other long term (current) drug therapy
CPT/HCPCS: 36415; 71010; 71020; 80048; 80053; 81001; 82550; 83615; 83880; 84484; 85025; 85610; 86140; 87070; 87205; 87804; 93005; 93010; 94640; 97110-GP; 97161-GP; 99285; A9270-GY; J0456; J0696; J1940; J2930; J7050